=== PATIENT | male | born 1955 | race African-American/Black ===

== ENCOUNTER 2018-08-19 08:47 | Inpatient (IN) | payer OTHER ==
[~2018-08-19] VITALS: Ht 175.3 cm; Wt 70.3 kg
[2018-08-19] VITALS (10 sets, daily range): BP systolic 96–125; BP diastolic 60–76
[2018-08-19] MEDS ORDERED: TDAP DIPH,PERTUSS,TET VAC/PF 0.5 ML DISP.SYRIN IM ONE ×3 (09:30→09:36)
[2018-08-19] MEDS ORDERED: NEOMY/BACITRA/POLYMYXIN B OINT UD PACKET TP ONE (09:30)
--- NOTE | 2018-08-19 09:43 | NUR ---
EKG DONE, L;ABS DRAWN, PT TO CT SCAN
[2018-08-19 09:45] LABS: BASOPHILS % (AUTO) 0.2 % (0.0-2.0); EOSINOPHILS # (AUTO) 0.1 K/uL (0.0-0.7); EOSINOPHILS % (AUTO) 0.5 % (0.0-7.0); HEMATOCRIT 45.2 % (36.7-47.1); HEMOGLOBIN 15.5 g/dL (12.5-16.3); LYMPHOCYTES # (AUTO) 1.1 K/uL (20.0-40.0); LYMPHOCYTES % (AUTO) 7.9 % (20.5-51.5); MEAN CORPUSCULAR HEMOGLOBIN 29.2 uug (23.8-33.4); MEAN CORPUSCULAR HGB CONC 34 g/dL (32.5-36.3); MEAN CORPUSCULAR VOLUME 84.8 fL (73.0-96.2); MONOCYTES # (AUTO) 0.7 K/uL (2.0-10.0); MONOCYTES % (AUTO) 5.1 % (0.0-11.0); NEUTROPHILS # (AUTO) 11.9 K/uL (1.8-8.9); NEUTROPHILS % (AUTO) 86.3 % (38.5-71.5); PLATELET COUNT (AUTO) 314 K/uL (152-348); RED BLOOD CELL COUNT(AUTO) 5.32 MIL/uL (4.06-5.63); WHITE BLOOD COUNT (AUTO) 13.8 K/uL (3.6-10.2)
[2018-08-19 09:55] LABS: CARBON DIOXIDE 19 mmol/L (21-32); CREATININE 1.7 mg/dL (0.6-1.3); GLUCOSE 117 mg/dL (74-106); POTASSIUM 4.3 mmol/L (3.5-5.1); UREA NITROGEN, BLOOD 15 mg/dL (7-18)
[2018-08-19 09:56] LABS: CHLORIDE 76 mmol/L (98-107)
[2018-08-19 10:00] LABS: ETHANOL < 3 MG/DL (0-0)
[2018-08-19 10:09] LABS: ALANINE AMINOTRANSFERASE 27 U/L (16-63); ALKALINE PHOSPHATASE 80 U/L (50-136); ASPARTATE AMINOTRANSFERASE 42 U/L (15-37); BILIRUBIN,DIRECT 0.1 mg/dL (0.0-0.2); BILIRUBIN,TOTAL 0.5 mg/dL (0.2-1.0); TOTAL PROTEIN, SERUM 9.5 g/dL (6.4-8.2)
[2018-08-19 10:16] LABS: ACETAMINOPHEN < 2.0 ug/mL (10-30)
[2018-08-19] MEDS ORDERED: IV 0.9% SODIUM CHLORID+ 20 KCL 1,000 ML IV ONE (10:30)
[2018-08-19] MEDS ORDERED: IV SODIUM CHLORIDE 3% 500 ML IV ONE (11:15)
[2018-08-19] MEDS ORDERED: Z GUARD REMEDY PASTE 57 GM TUBE TOP PRN (11:45)
[2018-08-19] MEDS ORDERED: MAGNESIUM HYDROXIDE 30 ML LIQUID UDC PO PRN (11:45)
[2018-08-19] MEDS ORDERED: ACETAMINOPHEN 325 MG TABLET PO PRN (11:45)
[2018-08-19] MEDS ORDERED: IV SODIUM CHLORIDE 3% 500 ML IV SCH (11:45)
--- NOTE | 2018-08-19 12:28 | NUR ---
STOPPED IV INFUSIONS EARLIER, IV TRANSFUSED, MULTIPLE ATTEMPTS BY MYSELF AND DUGLAS SHAIKH AND WE WERE NOT SUCCESSFUL. DR FRANCE WAS INFORMED AND ORDERED A PICC LINE, ALSO KIMBERLY THE [facility] [place] [facility] INFORMED AND TO CALL PICC LINE SERVICE.
--- NOTE | 2018-08-19 12:30 | NUR ---
CALLED CCU FOR REPORT, NURSE TO CALL BACK.
--- NOTE | 2018-08-19 12:47 | NUR ---
CALLED TO CCU, REPORT TO SUGEY SHAIKH, DR PRADO TO [facility] CENTRAL LINE.
[2018-08-19] MEDS ORDERED: diphenhydrAMINE 50 MG/1 ML VIAL ONE (13:14)
[2018-08-19] MEDS ORDERED: METOCLOPRAMIDE HCL 10 MG/2 ML VIAL ONE (13:15)
--- NOTE | 2018-08-19 13:25 | NUR ---
DR PRADO PLACED CENTRAL TO R FEMORAL, TRIPLE LEUMEN. CALLED CCU TO INFORM PT IN ROUTE AND ADMIN TIMO AND BENADRYL IV DUE TO PT VOMITING.
[2018-08-19] MEDS ORDERED: diphenhydrAMINE 50 MG/1 ML VIAL IV STA (13:26)
[2018-08-19] MEDS ORDERED: METOCLOPRAMIDE HCL 10 MG/2 ML VIAL IV STA (13:26)
[2018-08-19 15:58] LABS: CREATININE 1.8 mg/dL (0.6-1.3); POTASSIUM 3.7 mmol/L (3.5-5.1)
[2018-08-19] MEDS ORDERED: ASPIRIN 300 MG RECTAL SUPP RC SCH (17:15)
[2018-08-19] MEDS: ONDANSETRON 4 MG/2 ML VIAL IV PRN (19:49)
[2018-08-19] MEDS: HYDROCODONE/APAP 5-325MG TABLET PO PRN ×2 (19:50→23:55)
--- NOTE | 2018-08-19 20:00 | NUR ---
D/C'd NS20K/L, no order after ER. Dr Sandoval aware.
[2018-08-20] VITALS (23 sets, daily range): BP systolic 91–159; BP diastolic 43–95
[2018-08-20] MEDS: ONDANSETRON 4 MG/2 ML VIAL IV PRN ×2 (02:03→17:16)
--- NOTE | 2018-08-20 03:00 | NUR ---
Vomiting large amount.
[2018-08-20 05:06] LABS: BASOPHILS % (AUTO) 0.1 % (0.0-2.0); HEMATOCRIT 38.3 % (36.7-47.1); HEMOGLOBIN 13.3 g/dL (12.5-16.3); LYMPHOCYTES # (AUTO) 0.6 K/uL (20.0-40.0); LYMPHOCYTES % (AUTO) 4.3 % (20.5-51.5); MEAN CORPUSCULAR HEMOGLOBIN 28.5 uug (23.8-33.4); MEAN CORPUSCULAR HGB CONC 35 g/dL (32.5-36.3); MEAN CORPUSCULAR VOLUME 82.2 fL (73.0-96.2); MONOCYTES # (AUTO) 0.9 K/uL (2.0-10.0); MONOCYTES % (AUTO) 6.5 % (0.0-11.0); NEUTROPHILS # (AUTO) 12.9 K/uL (1.8-8.9); NEUTROPHILS % (AUTO) 89.1 % (38.5-71.5); PLATELET COUNT (AUTO) 306 K/uL (152-348); RED BLOOD CELL COUNT(AUTO) 4.66 MIL/uL (4.06-5.63); WHITE BLOOD COUNT (AUTO) 14.5 K/uL (3.6-10.2)
[2018-08-20 05:19] LABS: MAGNESIUM 1.6 mg/dL (1.8-2.4); PHOSPHOROUS 5.9 mg/dL (2.5-4.9); POTASSIUM 3.5 mmol/L (3.5-5.1)
[2018-08-20] MEDS: HYDROCODONE/APAP 5-325MG TABLET PO PRN ×4 (05:47→21:18)
--- NOTE | 2018-08-20 08:56 | NUR ---
US tech at the bedside for 2D Echocardiogram.
[2018-08-20] MEDS: ASPIRIN 81 MG TAB.CHEW PO SCH (09:27)
[2018-08-20] MEDS ORDERED: ATOR40TA PO (12:11)
[2018-08-20] MEDS ORDERED: NAPR500T6 PO (13:11)
[2018-08-20] MEDS ORDERED: NIFE60TA69 PO (13:11)
[2018-08-20] MEDS ORDERED: CARV12.52 PO (13:11)
[2018-08-20] MEDS ORDERED: HYDR100T27 PO (13:11)
[2018-08-20] MEDS ORDERED: ISOS30TA6 PO (13:11)
[2018-08-20] MEDS ORDERED: MULT-634 PO (13:11)
[2018-08-20] MEDS ORDERED: LOSA100T15 PO (13:11)
[2018-08-20] MEDS ORDERED: GABA-534 PO (13:11)
[2018-08-20] MEDS ORDERED: LORA10TA7 PO (13:11)
[2018-08-20] MEDS ORDERED: MAGN400C PO (13:11)
[2018-08-20] MEDS ORDERED: FURO20TA4 PO (13:11)
[2018-08-20] MEDS ORDERED: POTA10TA10 PO (13:11)
[2018-08-20] MEDS ORDERED: FOLI1TAB16 PO (13:11)
[2018-08-20] MEDS ORDERED: ESCI5TAB10 PO (13:11)
[2018-08-20] MEDS ORDERED: CARV25TA2 PO (13:11)
[2018-08-20] MEDS ORDERED: PANT40TA4 PO (13:12)
[2018-08-20] MEDS ORDERED: MAGNESIUM SULFATE/D5W 100 ML IV SCH (13:15)
[2018-08-20] MEDS ORDERED: SUCR1TAB PO (13:17)
[2018-08-20] MEDS ORDERED: [UNRECOGNIZED DRUG - OTHER] (13:17)
[2018-08-20] MEDS ORDERED: SODI100037 PO (13:17)
[2018-08-20] MEDS ORDERED: MULTIVITAMIN (13:17)
[2018-08-20] MEDS ORDERED: SPIR25TA6 PO (13:17)
[2018-08-20] MEDS ORDERED: ventolin (13:17)
[2018-08-20] MEDS ORDERED: VITA1TAB18 PO (13:17)
--- NOTE | 2018-08-20 13:24 | NUR ---
US tech at the bedside for US Kidneys.
--- NOTE | 2018-08-20 13:25 | NUR ---
Spoke with Dr. Sandoval on the telephone and made aware to reconcile pt's home medication list.
[2018-08-20 14:40] LABS: *BILIRUBIN,URIN 2+ (NEGATIVE); *BLOOD, URINE 3+ (NEGATIVE); *CLARITY,URINE CLOUDY (CLEAR); *COLOR,URINE DARK YELLOW (YELLOW); *KETONES,URINE TRACE (NEGATIVE); *PROTEIN,URINE 1+ (NEGATIVE); *UROBILINOGEN,URINE 0.2 E.U./dl (NORMAL); LEUKOCYTE ESTERASE ,URINE TRACE (NEGATIVE); NITRITE, URINE NEGATIVE (NEGATIVE); UGLUCOSE NEGATIVE (NEGATIVE)
[2018-08-20 14:53] LABS: *CREATININE,URINE 176.2 mg/dL (30-125); *URINE TOTAL PROTEIN RANDOM 87.1 mg/dL (<150/24HR)
[2018-08-20 15:09] LABS: RBC,URINE TNTC /HPF (0-3); URINE AMORPHOUS URATE FEW /HPF
[2018-08-20 15:10] LABS: MUCUS,URINE FEW /LPF (0-FEW)
[2018-08-20] MEDS ORDERED: NAPROXEN 500 MG TABLET PO PRN ×2 (15:45→16:15)
[2018-08-20] MEDS ORDERED: KLOR CON 8 MEQ PO (15:53)
[2018-08-20] MEDS ORDERED: ALBUTEROL SULFATE 2.5 MG/3 ML NEBU NEB PRN (16:15)
[2018-08-20] MEDS: PANTOPRAZOLE SODIUM 40 MG TABLET.DR PO SCH (16:45)
[2018-08-20] MEDS: hydrALAZINE HCL 50 MG TABLET PO SCH ×2 (16:46→22:35)
[2018-08-20] MEDS: MAGNESIUM OXIDE 400 MG TABLET PO SCH (16:46)
[2018-08-20] MEDS: GABAPENTIN 300 MG CAPSULE PO SCH (16:46)
[2018-08-20] MEDS: SUCRALFATE 1 G TABLET PO SCH (16:53)
[2018-08-20] MEDS ORDERED: Medication Not On Formulary EA (Hydralazine Hcl 1 TAB) PO SCH (17:00)
--- NOTE | 2018-08-20 20:00 | NUR ---
Pt in room alert awake in no acute distress. Ice bag reuested on abdomen for comfort measures. Denies any n/v at this time. Able to make needs known. Right femoral triple lumen remains patent and hep locked. No c/o chest pain or sob at this time. Sinus rhythm noted on tele monitor. F/c intact. Will continue to monitor. Call light placed within reach. Pt reminded of NPO diet except for medications.
[2018-08-20] MEDS: ATORVASTATIN 40 MG TABLET PO SCH (20:32)
[2018-08-20] MEDS: METOPROLOL TARTRATE 25 MG TABLET PO SCH (20:32)
[2018-08-20] MEDS ORDERED: ATORVASTATIN 40 MG TABLET PO SCH (21:00)
[2018-08-21] VITALS (16 sets, daily range): BP systolic 92–136; BP diastolic 53–74
[2018-08-21 04:58] LABS: BASOPHILS % (AUTO) 0.2 % (0.0-2.0); EOSINOPHILS # (AUTO) 0.1 K/uL (0.0-0.7); EOSINOPHILS % (AUTO) 0.7 % (0.0-7.0); HEMATOCRIT 32.5 % (36.7-47.1); HEMOGLOBIN 11.6 g/dL (12.5-16.3); LYMPHOCYTES # (AUTO) 1.4 K/uL (20.0-40.0); LYMPHOCYTES % (AUTO) 14.6 % (20.5-51.5); MEAN CORPUSCULAR HEMOGLOBIN 29.5 uug (23.8-33.4); MEAN CORPUSCULAR HGB CONC 36 g/dL (32.5-36.3); MEAN CORPUSCULAR VOLUME 82.7 fL (73.0-96.2); MONOCYTES % (AUTO) 10.2 % (0.0-11.0); NEUTROPHILS # (AUTO) 7.1 K/uL (1.8-8.9); NEUTROPHILS % (AUTO) 74.3 % (38.5-71.5); PLATELET COUNT (AUTO) 233 K/uL (152-348); RED BLOOD CELL COUNT(AUTO) 3.93 MIL/uL (4.06-5.63); WHITE BLOOD COUNT (AUTO) 9.6 K/uL (3.6-10.2)
[2018-08-21 05:08] LABS: BILIRUBIN,TOTAL 0.3 mg/dL (0.2-1.0); CREATININE 2.1 mg/dL (0.6-1.3); PHOSPHOROUS 2.8 mg/dL (2.5-4.9); POTASSIUM 4.3 mmol/L (3.5-5.1); TOTAL PROTEIN, SERUM 6.3 g/dL (6.4-8.2)
[2018-08-21] MEDS: hydrALAZINE HCL 50 MG TABLET PO SCH ×3 (06:00→22:52)
--- NOTE | 2018-08-21 06:00 | NUR ---
Pt in room with no c/o pain or discomfort. Able to make needs known with no episodes of confusion. Denies any chest pain. Will continue to monitor. Maintaining NPO. V/S are WNL. Hydralazine routine mornings medication held due to BP 108/69.
[2018-08-21] MEDS: PANTOPRAZOLE SODIUM 40 MG TABLET.DR PO SCH (06:42)
[2018-08-21] MEDS ORDERED: LORATADINE 10 MG TABLET PO SCH (09:00)
[2018-08-21] MEDS ORDERED: CARVEDILOL 12.5 MG TABLET PO SCH (09:00)
[2018-08-21] MEDS ORDERED: CARVEDILOL 25 MG TABLET PO SCH (09:00)
[2018-08-21] MEDS: SUCRALFATE 1 G TABLET PO SCH ×3 (09:11→17:04)
[2018-08-21] MEDS: POTASSIUM CHLORIDE 8 MEQ TAB.PRT.SR PO SCH (09:11)
[2018-08-21] MEDS: FOLIC ACID 1 MG TABLET PO SCH (09:11)
[2018-08-21] MEDS: MULTIVIT, IRON, MIN NO. 8, FA TABLET PO SCH (09:11)
[2018-08-21] MEDS: NIFEdipine XL 60 MG TABSR PO SCH (09:12)
[2018-08-21] MEDS: MAGNESIUM OXIDE 400 MG TABLET PO SCH ×2 (09:12→17:04)
[2018-08-21] MEDS: VITAMIN B COMPLEX 1 TABLET PO SCH (09:12)
[2018-08-21] MEDS: ASPIRIN 81 MG TAB.CHEW PO SCH (09:12)
[2018-08-21] MEDS: METOPROLOL TARTRATE 25 MG TABLET PO SCH ×2 (09:13→20:39)
[2018-08-21] MEDS: ISOSORBIDE MONONITRATE 30 MG TAB.SR.24H PO SCH (09:13)
[2018-08-21] MEDS: GABAPENTIN 300 MG CAPSULE PO SCH ×3 (09:14→17:04)
--- NOTE | 2018-08-21 09:15 | NUR ---
DOCTOR OSWALDO IN UNIT TO SEE PATIENT. PATIENT SODIUM STILL LOW AT 122. INFORM SHTORCH TO SEE IF HE WANTS TO CONTINUE 3% SALINE OR SODIUM TABLETS.
--- NOTE | 2018-08-21 10:30 | NUR ---
DOCTOR CLEANING IN THE UNIT PATIENT WILL BE CONTINUED ON SODIUM TABLETS. PATIENT IS OKAY TO DOWNGRADE PER HIS STAND POINT.
[2018-08-21] MEDS: IV NS 1000 ML 1,000 ML IV PRN (11:10)
--- NOTE | 2018-08-21 12:17 | NUR ---
REPORT GIVEN TO RYAN SHAIKH. PATIENT WILL BE GOING TO ROOM 204 PER CHARGE NURSE.
--- NOTE | 2018-08-21 13:54 | NUR ---
PATIENT TRANSFERRED AT THIS TIME TO ROOM 204. PENDING PHARMACY TO DELIVER 1300 SODIUM TABLETS. INFORMED RYAN SHAIKH.
--- NOTE | 2018-08-21 14:00 | NUR ---
Recieved patient from CCU. patient is awake alert oriented x3, made comfortable, aware plan of care,md orders.aware to call nurse for assistance , to prevent fall or injury call light within reach, bed alarm on. tele monitor sinus rhythm.on room air, denies breathing discomfort. denies chest pain. no sacral breakdown breakdown noted. right lower leg abrasion with dressing, clean and dry. right groin picc line triple lumen,dressing with old blood noted, intravenous fluid, ns at 75 ml/hr , infusing well.
--- NOTE | 2018-08-21 14:34 | NUR ---
Received a call from Cindy Pratt stating she is the sister of the patient: landline and cell. Marisa Cindy is requesting that the patient does not go back to the previous establishment, [facility]. Marisa Cindy stated she already spoke to case management about this request
[2018-08-21] MEDS: SODIUM CHLORIDE 1,000 MG TABLET PO SCH ×2 (15:38→17:04)
--- NOTE | 2018-08-21 17:41 | NUR ---
appetite good,tolerating food and fluids well. denies discomfort.resting well
[2018-08-21] MEDS: ATORVASTATIN 40 MG TABLET PO SCH (20:38)
[2018-08-22 00:13] VITALS: BP 116/66
[2018-08-22] MEDS: IV NS 1000 ML 1,000 ML IV PRN ×2 (00:25→16:48)
[2018-08-22 04:00] VITALS: BP 118/64
[2018-08-22] MEDS: PANTOPRAZOLE SODIUM 40 MG TABLET.DR PO SCH (06:08)
[2018-08-22] MEDS: hydrALAZINE HCL 50 MG TABLET PO SCH ×3 (06:09→22:19)
[2018-08-22 06:44] LABS: BASOPHILS % (AUTO) 0.5 % (0.0-2.0); EOSINOPHILS # (AUTO) 0.1 K/uL (0.0-0.7); EOSINOPHILS % (AUTO) 1.7 % (0.0-7.0); HEMATOCRIT 30.3 % (36.7-47.1); HEMOGLOBIN 10.6 g/dL (12.5-16.3); LYMPHOCYTES # (AUTO) 1.1 K/uL (20.0-40.0); MEAN CORPUSCULAR HEMOGLOBIN 29.1 uug (23.8-33.4); MEAN CORPUSCULAR HGB CONC 35 g/dL (32.5-36.3); MEAN CORPUSCULAR VOLUME 82.8 fL (73.0-96.2); MONOCYTES # (AUTO) 0.8 K/uL (2.0-10.0); NEUTROPHILS # (AUTO) 5.9 K/uL (1.8-8.9); NEUTROPHILS % (AUTO) 73.8 % (38.5-71.5); PLATELET COUNT (AUTO) 211 K/uL (152-348); RED BLOOD CELL COUNT(AUTO) 3.66 MIL/uL (4.06-5.63)
--- NOTE | 2018-08-22 07:10 | NUR ---
Received patient in bed, no distress noted at this time, bed in low position, side rails up upx2, bed alarm on. Albert draining clear yellow urine.
[2018-08-22 07:21] LABS: CREATININE 1.2 mg/dL (0.6-1.3); POTASSIUM 3.7 mmol/L (3.5-5.1)
[2018-08-22] MEDS ORDERED: LORATADINE 10 MG TABLET PO SCH (09:00)
[2018-08-22] MEDS: GABAPENTIN 300 MG CAPSULE PO SCH ×3 (09:39→17:37)
[2018-08-22] MEDS: MULTIVIT, IRON, MIN NO. 8, FA TABLET PO SCH (09:40)
[2018-08-22] MEDS: MAGNESIUM OXIDE 400 MG TABLET PO SCH ×2 (09:40→17:37)
[2018-08-22] MEDS: ASPIRIN 81 MG TAB.CHEW PO SCH (09:40)
[2018-08-22] MEDS: SODIUM CHLORIDE 1,000 MG TABLET PO SCH ×3 (09:40→17:37)
[2018-08-22] MEDS: FOLIC ACID 1 MG TABLET PO SCH (09:40)
[2018-08-22] MEDS: LORATADINE 10 MG TABLET PO SCH (09:40)
[2018-08-22] MEDS: POTASSIUM CHLORIDE 8 MEQ TAB.PRT.SR PO SCH (09:40)
[2018-08-22] MEDS: VITAMIN B COMPLEX 1 TABLET PO SCH (09:43)
[2018-08-22] MEDS: NIFEdipine XL 60 MG TABSR PO SCH (09:43)
[2018-08-22] MEDS: ISOSORBIDE MONONITRATE 30 MG TAB.SR.24H PO SCH (09:43)
[2018-08-22] MEDS: METOPROLOL TARTRATE 25 MG TABLET PO SCH ×2 (09:44→20:38)
[2018-08-22] MEDS: SUCRALFATE 1 G TABLET PO SCH ×2 (11:08→16:47)
[2018-08-22 11:20] VITALS: BP 126/75
[2018-08-22 15:00] VITALS: BP 97/57
--- NOTE | 2018-08-22 17:52 | NUR ---
Patient has been cooperative with, tolerated atkins removal and void trial done. Patient currently in bed, no distress noted, bed in low position, side rails up x2, bed alarm on.
--- NOTE | 2018-08-22 19:40 | NUR ---
RECEIVED IN BED ALERT ORIENTED, PATIENT USES URINAL FOR BLADDER ELIMINATIONS, NO COMPLAIN OF PAIN, NO SOB NO CHEST PAIN, RYTHM SINUS RYTHM, CALL LIGHT WITHIN REACH.
[2018-08-22] MEDS: ATORVASTATIN 40 MG TABLET PO SCH (20:32)
[2018-08-22 20:58] VITALS: BP 126/76
[2018-08-23] VITALS (7 sets, daily range): BP systolic 112–156; BP diastolic 62–86
[2018-08-23 06:28] LABS: POTASSIUM 4.1 mmol/L (3.5-5.1)
[2018-08-23] MEDS: PANTOPRAZOLE SODIUM 40 MG TABLET.DR PO SCH (06:33)
[2018-08-23] MEDS: hydrALAZINE HCL 50 MG TABLET PO SCH ×3 (06:34→21:16)
[2018-08-23] MEDS: IV NS 1000 ML 1,000 ML IV PRN (06:36)
--- NOTE | 2018-08-23 06:45 | NUR ---
PATIENT SLEEP INTERMITTENTLY, NO SOB NO CHEST PAIN NOTED, NO COMPLAIN OF PAIN AT THIS TIME. PATIENT VOIDING FAIRLY WELL, R FEMORAL/GROIN PICC LINE DRESSING WAS CHANGED DUE TO SOILAGE, KEPT CLEAN AND DRY, CALL LIGHT WITHIN REACH.,
[2018-08-23 06:54] LABS: BASOPHILS % (AUTO) 0.6 % (0.0-2.0); EOSINOPHILS # (AUTO) 0.3 K/uL (0.0-0.7); EOSINOPHILS % (AUTO) 3.7 % (0.0-7.0); HEMATOCRIT 32.9 % (36.7-47.1); HEMOGLOBIN 11.4 g/dL (12.5-16.3); LYMPHOCYTES # (AUTO) 1.3 K/uL (20.0-40.0); LYMPHOCYTES % (AUTO) 15.6 % (20.5-51.5); MEAN CORPUSCULAR HEMOGLOBIN 29.4 uug (23.8-33.4); MEAN CORPUSCULAR HGB CONC 35 g/dL (32.5-36.3); MEAN CORPUSCULAR VOLUME 84.8 fL (73.0-96.2); MONOCYTES % (AUTO) 11.8 % (0.0-11.0); NEUTROPHILS # (AUTO) 5.6 K/uL (1.8-8.9); NEUTROPHILS % (AUTO) 68.3 % (38.5-71.5); PLATELET COUNT (AUTO) 232 K/uL (152-348); RED BLOOD CELL COUNT(AUTO) 3.88 MIL/uL (4.06-5.63); WHITE BLOOD COUNT (AUTO) 8.2 K/uL (3.6-10.2)
[2018-08-23] MEDS: POTASSIUM CHLORIDE 8 MEQ TAB.PRT.SR PO SCH (08:19)
[2018-08-23] MEDS: GABAPENTIN 300 MG CAPSULE PO SCH ×3 (08:19→16:56)
[2018-08-23] MEDS: MULTIVIT, IRON, MIN NO. 8, FA TABLET PO SCH (08:19)
[2018-08-23] MEDS: MAGNESIUM OXIDE 400 MG TABLET PO SCH ×2 (08:19→16:56)
[2018-08-23] MEDS: ISOSORBIDE MONONITRATE 30 MG TAB.SR.24H PO SCH (08:19)
[2018-08-23] MEDS: SODIUM CHLORIDE 1,000 MG TABLET PO SCH ×3 (08:19→16:56)
[2018-08-23] MEDS: NIFEdipine XL 60 MG TABSR PO SCH (08:20)
[2018-08-23] MEDS: METOPROLOL TARTRATE 25 MG TABLET PO SCH ×2 (08:20→21:15)
[2018-08-23] MEDS: ASPIRIN 81 MG TAB.CHEW PO SCH (08:20)
[2018-08-23] MEDS: LORATADINE 10 MG TABLET PO SCH (08:20)
[2018-08-23] MEDS: FOLIC ACID 1 MG TABLET PO SCH (08:20)
[2018-08-23] MEDS: SUCRALFATE 1 G TABLET PO SCH ×3 (08:21→16:56)
[2018-08-23] MEDS: VITAMIN B COMPLEX 1 TABLET PO SCH (08:23)
--- NOTE | 2018-08-23 20:30 | NUR ---
PT'S RIGHT FEMORAL PICC LINE WAS ALMOST PULLED OUT BY PT, CALEB TEIXEIRA WAS NOTIFIED, PICC LINE WAS FULLY REMOVED, NEW IV INSERTED. PRESSURE DRESSING APPLIED TO AREA. NO BLEEDING NOTED AT PICC LINE SITE.
[2018-08-23] MEDS: ATORVASTATIN 40 MG TABLET PO SCH (21:16)
[2018-08-24] MEDS: IV NS 1000 ML 1,000 ML IV PRN (03:12)
[2018-08-24 05:59] VITALS: BP 108/74
[2018-08-24] MEDS: hydrALAZINE HCL 50 MG TABLET PO SCH ×3 (06:00→21:20)
[2018-08-24] MEDS: PANTOPRAZOLE SODIUM 40 MG TABLET.DR PO SCH (06:23)
[2018-08-24] MEDS: SUCRALFATE 1 G TABLET PO SCH ×3 (06:27→17:06)
--- NOTE | 2018-08-24 06:34 | NUR ---
PT SLEPT INTERMITTENTLY THROUGH THE NIGHT, PT DENIED HAVING ANY PAIN OR DIFFICULTY BREATHING, PT IS ALERT, CALM AND COOPERATIVE. ALL NEEDS MET, SAFETY MEASURES ARE IN PLACE, CALL LIGHT WITHIN REACH, BED ALARM IS ON.
[2018-08-24 07:32] LABS: POTASSIUM 4.4 mmol/L (3.5-5.1)
[2018-08-24 07:43] LABS: BASOPHILS % (AUTO) 0.5 % (0.0-2.0); EOSINOPHILS # (AUTO) 0.3 K/uL (0.0-0.7); EOSINOPHILS % (AUTO) 4.6 % (0.0-7.0); LYMPHOCYTES # (AUTO) 1.4 K/uL (20.0-40.0); MEAN CORPUSCULAR HEMOGLOBIN 29.7 uug (23.8-33.4); MEAN CORPUSCULAR HGB CONC 35 g/dL (32.5-36.3); MEAN CORPUSCULAR VOLUME 84.7 fL (73.0-96.2); MONOCYTES % (AUTO) 14.4 % (0.0-11.0); NEUTROPHILS # (AUTO) 4.3 K/uL (1.8-8.9); NEUTROPHILS % (AUTO) 60.5 % (38.5-71.5); PLATELET COUNT (AUTO) 199 K/uL (152-348); WHITE BLOOD COUNT (AUTO) 7.2 K/uL (3.6-10.2)
[2018-08-24 07:46] LABS: HEMATOCRIT 27.1 % (36.7-47.1); HEMOGLOBIN 9.5 g/dL (12.5-16.3)
--- NOTE | 2018-08-24 09:30 | NUR ---
Received patient, awake alert x2-3. With abdominal pain. PRN pain medications given. Not in any form of distress. No dizziness, SOB noted. Intact G22 over left hand infusing NS at 75cc/hr.
[2018-08-24] MEDS: METOPROLOL TARTRATE 25 MG TABLET PO SCH ×2 (09:33→20:19)
[2018-08-24] MEDS: GABAPENTIN 300 MG CAPSULE PO SCH ×3 (09:34→17:06)
[2018-08-24] MEDS: VITAMIN B COMPLEX 1 TABLET PO SCH (09:34)
[2018-08-24] MEDS: ISOSORBIDE MONONITRATE 30 MG TAB.SR.24H PO SCH (09:34)
[2018-08-24] MEDS: NIFEdipine XL 60 MG TABSR PO SCH (09:35)
[2018-08-24] MEDS: FOLIC ACID 1 MG TABLET PO SCH (09:35)
[2018-08-24] MEDS: POTASSIUM CHLORIDE 8 MEQ TAB.PRT.SR PO SCH (09:35)
[2018-08-24] MEDS: MAGNESIUM OXIDE 400 MG TABLET PO SCH ×2 (09:35→17:06)
[2018-08-24] MEDS: MULTIVIT, IRON, MIN NO. 8, FA TABLET PO SCH (09:35)
[2018-08-24] MEDS: LORATADINE 10 MG TABLET PO SCH (09:35)
[2018-08-24] MEDS: SODIUM CHLORIDE 1,000 MG TABLET PO SCH ×3 (09:35→17:06)
[2018-08-24] MEDS: ASPIRIN 81 MG TAB.CHEW PO SCH (09:35)
[2018-08-24] MEDS: HYDROCODONE/APAP 5-325MG TABLET PO PRN (09:36)
[2018-08-24 11:19] VITALS: BP 147/84
[2018-08-24 12:29] LABS: IRON, SERUM 26 ug/dL (50-175)
[2018-08-24 15:00] VITALS: BP 140/77
--- NOTE | 2018-08-24 18:50 | NUR ---
Seen on rounding. IV D/C as ordered. No complaints of pain, SOB noted. Awake, alert x3
--- NOTE | 2018-08-24 20:00 | NUR ---
ROUNDS MADE PATIENT AWAKE, ALERT, VERBALLY COHERENT, WATCHING TV . PER PATIENT HE IS GOING HOME TOMORROW . NO RESPIRATORY DISTRESS NOTED BREATHING EVEN AND UNLABORED OM ROOM AIR . URINAL PLACE WITH IN REACH AND ADVISED PATIENT TO CALL FOR ASSISTANCE PATIENT VERBALIZED UNDERSTANDING.
[2018-08-24 20:11] VITALS: BP 147/88
[2018-08-24] MEDS: ATORVASTATIN 40 MG TABLET PO SCH (20:19)
--- NOTE | 2018-08-24 21:00 | NUR ---
TOOK MEDIATION WITH WATER NO DIFFICULTY TOLERATED ,ASKED FOR MORE JUICES GIVEN APPLE JUICE AND CRANBERRY JUICE.URINAL EMPTED WITH YELLOWISH COLORED URINE .
[2018-08-25] MEDS: hydrALAZINE HCL 50 MG TABLET PO SCH ×2 (05:29→14:25)
[2018-08-25 05:45] VITALS: BP 132/77
[2018-08-25] MEDS: PANTOPRAZOLE SODIUM 40 MG TABLET.DR PO SCH (06:32)
[2018-08-25] MEDS: SUCRALFATE 1 G TABLET PO SCH ×3 (06:32→17:39)
--- NOTE | 2018-08-25 07:10 | NUR ---
Received pt AAOx3, pt is able to verbalize needs. No immediate s/sx of SOB, pain, distress or discomfort. Pt is asking when he is going to get discharged?
[2018-08-25] MEDS ORDERED: FERROUS SULFATE 325 MG TABEC PO SCH (09:00)
[2018-08-25] MEDS: LORATADINE 10 MG TABLET PO SCH (09:36)
[2018-08-25] MEDS: POTASSIUM CHLORIDE 8 MEQ TAB.PRT.SR PO SCH (09:36)
[2018-08-25] MEDS: ASPIRIN 81 MG TAB.CHEW PO SCH (09:36)
[2018-08-25] MEDS: GABAPENTIN 300 MG CAPSULE PO SCH ×3 (09:36→17:39)
[2018-08-25] MEDS: SODIUM CHLORIDE 1,000 MG TABLET PO SCH ×3 (09:36→17:39)
[2018-08-25] MEDS: FOLIC ACID 1 MG TABLET PO SCH (09:36)
[2018-08-25] MEDS: MULTIVIT, IRON, MIN NO. 8, FA TABLET PO SCH (09:37)
[2018-08-25] MEDS: METOPROLOL TARTRATE 25 MG TABLET PO SCH (09:37)
[2018-08-25] MEDS: MAGNESIUM OXIDE 400 MG TABLET PO SCH ×2 (09:38→17:39)
[2018-08-25] MEDS: NIFEdipine XL 60 MG TABSR PO SCH (09:38)
[2018-08-25] MEDS: ISOSORBIDE MONONITRATE 30 MG TAB.SR.24H PO SCH (09:38)
[2018-08-25] MEDS: VITAMIN B COMPLEX 1 TABLET PO SCH (09:41)
[2018-08-25 11:00] VITALS: BP 152/85
--- NOTE | 2018-08-25 11:43 | NUR ---
Report given to Carlie
[2018-08-25] MEDS ORDERED: ATOR10TA PO (11:54)
[2018-08-25] MEDS ORDERED: ASPI81TA31 PO (11:54)
[2018-08-25] MEDS ORDERED: FERR325T28 PO (11:54)
[2018-08-25] MEDS ORDERED: METO25TA6 PO (11:54)
[2018-08-25] MEDS ORDERED: HYDR-3326 PO (11:54)
[2018-08-25 14:25] VITALS: BP 130/78
--- NOTE | 2018-08-25 17:45 | NUR ---
PATIENT DISCHARGED IN STABLE CONDITION TO [facility]. DISCHARGE PAPERS AND INSTRUCTIONS GIVEN AND EXPLAINED TO PATIENT. ACCOMPANIED PATIENT DOWN TO LOBBY VIA WHEELCHAIR. LEFT HOSPITAL VIA [facility].
== END 2018-08-25 18:30 | DRG 469 ==
LOC: ER 08:47 → CCU 12:28 → TELE 08-21 13:57 → MED 08-23 11:30
PROVIDERS: ADMIT Family Medicine; ATTEND Family Medicine
PROC: 06HY33Z Insertion of Infusion Device into Lower Vein, Percutaneous Approach (ICD-10-PCS; principal; 2018-08-19)
DX: N17.0 Acute kidney failure with tubular necrosis (principal); I21.A1 Myocardial infarction type 2; G93.41 Metabolic encephalopathy; E22.2 Syndrome of inappropriate secretion of antidiuretic hormone; I11.0 Hypertensive heart disease with heart failure; I50.32 Chronic diastolic (congestive) heart failure; D68.59 Other primary thrombophilia; E87.8 Other disorders of electrolyte and fluid balance, not elsewhere classified; I45.81 Long QT syndrome; E86.0 Dehydration; Z59.0 Homelessness; Z86.73 Personal history of transient ischemic attack (TIA), and cerebral infarction without residual deficits; F17.210 Nicotine dependence, cigarettes, uncomplicated; I25.2 Old myocardial infarction; Z74.09 Other reduced mobility
CPT/HCPCS: 36415; 36556; 70030-TC; 70450; 71045; 76770; 83550; 83605; 83735; 84100; 84156; 84300; 84443; 85025; 85730; 87040; 90715; 93005; 93307; A4217; A4663; C1751; G0480; G0480-TC; J1200; J2405; J2765; J3475; J3490; J7030